=== PATIENT | male | born 1955 | race Two or more races ===

== ENCOUNTER 2017-10-13 07:07 | Day surgery (SDC) | payer OTHER ==
[~2017-10-13 07:07] MED LIST: AVODART0.5 MG PO; COLACE100 MG PO; PERCOCET 5/3251 TAB PO; ZANTAC150 M3 PO; ZOCOR5 MG PO; [UNRECOGNIZED DRUG - OTHER] PO
[2017-10-13] MEDS ORDERED: PERCOCET 5-3251 EACH PO (09:30)
[2017-10-13] MEDS ORDERED: COLACE100 MG PO (09:30)
== END 2017-10-13 16:30 | disposition home or self-care (01) ==
LOC: CIR.AMB 07:07
DX: D01.3 Carcinoma in situ of anus and anal canal (principal); K62.82 Dysplasia of anus